=== PATIENT | female | born 1945 | race Caucasian/White ===

== ENCOUNTER 2017-05-24 08:00 | Inpatient (IN) | payer MEDICARE, BC ==
[~2017-05-24] VITALS: Ht 162.6 cm; Wt 43.1 kg
[2017-05-24 09:28] LABS: BASOPHILS 0.2 % (0-2); EOSINOPHILS 0 % (0-7); HEMOGLOBIN 14.7 g/dL (12-16); IMMATURE GRANULOCYTES 0.7 % (0-5); LYMPHOCYTES 9.9 % (15-50); MCH 30.2 pg (26.0-34.0); MCHC 30.6 g/dL (31.0-37.0); MCV 98.6 fL (80.0-100.0); MEAN PLATELET VOLUME 10.8 fL (7.4-10.4); MONOCYTES 11.9 % (2-11); NEUTROPHILS 77.3 % (40-80); PLATELET COUNT 209 10x3/uL (130-400); RBC 4.87 10x6/uL (4.00-5.40); RDW 14.1 % (11.5-14.5); WBC 9.1 10x3/uL (4.8-10.8)
[2017-05-24 09:31] LABS: APPEARANCE CLEAR (CLEAR); BILIRUBIN NEGATIVE (NEGATIVE); COLOR DK YELLOW (YELLOW); GLUCOSE NEGATIVE (NEGATIVE); KETONE SMALL mg/dL (NEGATIVE); LEUKOCYTE ESTERASE NEGATIVE (NEGATIVE); NITRITE NEGATIVE (NEGATIVE); PROTEIN NEGATIVE (NEGATIVE); UROBILINOGEN NORMAL (NORMAL)
[2017-05-24 09:52] LABS: ALBUMIN 3.6 g/dL (3.4-5.0); ALKALINE PHOSPHATASE 74 U/L (46-116); ALT (SGPT) 19 U/L (10-68); CALC OSMOLALITY 298 mosm/kg (275-300); CALCIUM 9.3 mg/dL (8.5-10.1); CHLORIDE - SERUM 105 mmol/L (98-107); CREATININE - SERUM 0.4 mg/dL (0.6-1.3); GLUCOSE 141 mg/dL (74-106); POTASSIUM - SERUM 4.2 mmol/L (3.5-5.1); PROTEIN - SERUM 7.1 g/dL (6.4-8.2); SODIUM 148 mmol/L (136-145); THYROID STIMULATING HORMONE 0.12 uIU/mL (0.36-3.74); UREA NITROGEN 21 mg/dL (7-18); eGFR NON AFRICAN AMERICAN > 90 mL/min (90-120)
[2017-05-24] MEDS ORDERED: ULTRAM50 MG PO (11:52)
[2017-05-24] MEDS ORDERED: REMERON15 MG PO (11:53)
[2017-05-24] MEDS ORDERED: CEFUROXIME250 MG PO (11:54)
[2017-05-24] MEDS ORDERED: LEVOTHYROXINE100 MCG PO (11:54)
[2017-05-24 12:27] VITALS: BMI 16.3
[2017-05-24 12:33] VITALS: BP 156/74
[2017-05-24 14:53] LABS: ALBUMIN 3.3 g/dL (3.4-5.0); CALC OSMOLALITY 276 mosm/kg (275-300); CALCIUM 8.5 mg/dL (8.5-10.1); CHLORIDE - SERUM 103 mmol/L (98-107); CREATININE - SERUM 0.3 mg/dL (0.6-1.3); GLUCOSE 111 mg/dL (74-106); MAGNESIUM - SERUM 2.1 mg/dL (1.8-2.4); PHOSPHOROUS 3.6 mg/dL (2.5-4.9); POTASSIUM - SERUM 3.7 mmol/L (3.5-5.1); PRE-ALBUMIN 16.2 mg/dL (18.0-35.7); SODIUM 137 mmol/L (136-145); UREA NITROGEN 18 mg/dL (7-18); eGFR NON AFRICAN AMERICAN > 90 mL/min (90-120)
[2017-05-24 17:38] VITALS: BP 156/74
[2017-05-24 20:00] VITALS: BP 132/61
--- NOTE | 2017-05-24 22:37 | NUR ---
REC'D LYING IN BED. IS RESTING. NO DISTRESS NOTED. SUZANNA IS IN ROOM WITH AND STATED THAT "SHE DOESNT KNOW IF SHE IS GOING TO HAVE THE PEG TUBE PLACEMENT IN THE AM, LETS HOLD OFF ON THE CONSENT UNTIL THEN TO SEE WHAT SHE IS WANTING TO DO". WILL PLACE CONSENTS BACK ON CHART. ALSO A SON NAMED SOFÍA BEE CALLED AND WANTED TO KNOW THE STATUS OF HIS MOTHER. AT THE TIME THERE WAS NOT A PASSWORD ON FILE, BUT THERE WAS NOT ANYTHING TO TELL BECAUSE SHE DOESNT KNOW WHAT SHE IS WANTING TO DO YET. I TOLD SUZANNA AND HE PLACED A PASSWORD ON ACCT OF "SON". WILL CONT TO MONITOR. INSTRUCTED TO CALL IF NEEDED ANYTHING, BED LOW, LOCKED, CALL LIGHT IN REACH.
--- NOTE | 2017-05-25 00:30 | NUR ---
PT RESTING QUIETLY, EYES CLOSED. RESP EVEN, UNLABORED. NO DISTRESS NOTED. CONTINUE SIX HORSE HITCH DRIVER'S PLAN OF CARE.
[2017-05-25 04:00] VITALS: BP 137/61
[2017-05-25 05:23] LABS: BASOPHILS 0.1 % (0-2); EOSINOPHILS 0.4 % (0-7); HEMATOCRIT 46.2 % (36.0-48.0); HEMOGLOBIN 13.5 g/dL (12-16); IMMATURE GRANULOCYTES 0.7 % (0-5); LYMPHOCYTES 12.9 % (15-50); MCH 29.9 pg (26.0-34.0); MCHC 29.2 g/dL (31.0-37.0); MONOCYTES 16.8 % (2-11); NEUTROPHILS 69.1 % (40-80); PLATELET COUNT 181 10x3/uL (130-400); RBC 4.52 10x6/uL (4.00-5.40); RDW 14.1 % (11.5-14.5); WBC 8.4 10x3/uL (4.8-10.8)
[2017-05-25 05:26] LABS: MCV 102.2 fL (80.0-100.0)
[2017-05-25 05:45] LABS: ALKALINE PHOSPHATASE 58 U/L (46-116); ALT (SGPT) 17 U/L (10-68); CALC OSMOLALITY 297 mosm/kg (275-300); CALCIUM 8.5 mg/dL (8.5-10.1); CHLORIDE - SERUM 110 mmol/L (98-107); CHOL - HDL RATIO 2.9 ratio (2.3-4.1); CHOLESTEROL, TOTAL 141 mg/dL (0-200); CREATININE - SERUM 0.3 mg/dL (0.6-1.3); GLUCOSE 115 mg/dL (74-106); HDL CHOLESTEROL 48 mg/dL (32-96); LDL CHOLESTEROL 79 mg/dL (0-100); LDL-HDL RATIO 1.6 ratio (1.5-3.5); MAGNESIUM - SERUM 2.1 mg/dL (1.8-2.4); PHOSPHOROUS 3.3 mg/dL (2.5-4.9); POTASSIUM - SERUM 3.7 mmol/L (3.5-5.1); SODIUM 149 mmol/L (136-145); TRIGLYCERIDE 71 mg/dL (30-200); UREA NITROGEN 16 mg/dL (7-18); eGFR NON AFRICAN AMERICAN > 90 mL/min (90-120)
[2017-05-25 05:50] LABS: CARBON DIOXIDE 42.3 mmol/L (21.0-32.0)
--- NOTE | 2017-05-25 07:10 | NUR ---
PATIENT IN BED WITH EYES CLOSED RESTING QUIETLY. CALL LIGHT WITHIN REACH.
--- NOTE | 2017-05-25 07:30 | NUR ---
PT ASSESSMENT COMPLETE PT NOTED TO HAVE ALS DEWEY CATHETER PATENT TO CONCENTRATED YELLOW URINE. ALL ALDS PER TOTAL CARE OF STAFF MOBILE PER STAFF ASSIST. AWAITING PT TO DECIDE IF SHE IN FACT WISHES TO PROCEED WITH PEG PLACEMENT
[2017-05-25 09:32] VITALS: BP 146/72
[2017-05-25 11:58] VITALS: BP 141/69
--- NOTE | 2017-05-25 13:47 | NUR ---
Patient Name: MICHELLE CRUZ Admission Status: ER Accout number: [id number] Admission Date: 05-24-2017 : 1945 Admission Diagnosis: Attending: GARY Current LOS: 1 Anticipated DC Date: 05-27-2017 Planned Disposition: Home with Home Health Primary Insurance: MEDICARE A & B Discharge Planning Comments: CM MET WITH PATIENT, SON (SUKH), AND FRIEND (SILVIA) REGARDING D/C NEEDS AND PLANS. PATIENTS SON STATED HE OR HER FRIEND WILL DRIVE HER HOME AT DISCHARGE. PATIENT IS TOTALLY DEPENDENT ON HER CARE. PATIENT HAS A WALKER, WHEELCHAIR, AND SHOWER CHAIR AT HOME BUT HAS NOT GOTTEN UP IN A WHILE PER SON. PATIENTS PCP IS DR. CORTES AND PHARMACY IS [facility]. PATIENT, FRIEND, ANS SON ARE DECIDING ON HOME HEALTH AND WILL LET CASE MANAGEMENT KNOW SOON THEY DECIDE. CM WILL CONTINUE TO FOLLOW PATIENT WITH D/C NEEDS AND PLANS. PCP DR. SEBAST[facility]- [phone] SUKH (SON) [phone] SILVIA (FRIEND) [phone] Dope Heater: Teetee Dudley Is the patient Alert and Oriented? Yes 0 * How many steps to enter\exit or inside your home? 0 0 * PCP DR. CORTES 0 * Pharmacy [facility] 0 * Preadmission Environment Home with Family 0 * ADLs Total Dependent 0 * Equipment Shower Chair Walker Wheelchair 0 * List name and contact numbers for known caregivers / representatives who currently or will assist patient after discharge: SUKH CRUZ (SON) [phone] SILVIA GALICIA [phone] 0 * Community resources currently utilized None 0 * Additional services required to return to the preadmission environment? Yes 0 * Can the patient safely return to the preadmission environment? Yes 0 * Has this patient been hospitalized within the prior 30 days at any hospital? No 0 Grand Total: 0
[2017-05-25 13:57] VITALS: Ht 162.6 cm; Wt 43.1 kg
--- NOTE | 2017-05-25 15:04 | CN ---
PATIENT NAME:MICHELLE CRUZ MEDICAL RECORD: [id number] : 43 LOCATION:D.MS [facility] ADMIT DATE: 05/24/17 ACCOUNT: [id number] CONSULTING PHYSICIAN: DIANNA BRODY MD REFERRING PHYSICIAN: PAM CORTES MD DATE OF CONSULTATION: 05/24/2017 CHIEF COMPLAINT: Losing weight. HISTORY OF PRESENT ILLNESS: The patient is having difficult time swallowing. She has lost a dramatic amount of weight. She has ALS. She sought treatment for this out in [place]. She has not been able to walk since February. She has a very hoarse voice. She appears to be profoundly weak. She has almost no oral intake. I have been asked by Dr. Carter to place a feeding tube. I think it is going to be mandatory to place a feeding tube if the patient is going to seek additional therapy for ALS. She seems very weak now. She may not survive to seek additional treatment, but as for now, she is not ready to go to hospice. Symptoms came on gradually. They have worsened over the last 7 days. Nothing aggravates. Nothing alleviates. We discussed how gastrostomy tubes are placed and the fact they should not be removed for 4 weeks after they have been replaced. We discussed the risks, possible complications and alternatives to gastrostomy tube placement. This includes the risk of intestinal injury, bleeding and infection. I have discussed this with a friend of hers as well as with her son. PAST MEDICAL AND SURGICAL HISTORY: ALS. She wears glasses, knee surgery, tubal ligation, thyroid problems. HOME MEDICATIONS: Tramadol. ALLERGIES: No known drug allergies. FAMILY HISTORY: A parent had cancer. SOCIAL HISTORY: Former tobacco use. REVIEW OF SYSTEMS: She does have generalized weakness, dysphagia. The rest of review of systems is listed in the typed portion of the chart. PHYSICAL EXAMINATION: GENERAL: The patient appears acutely ill. Also appears chronically ill. The entire physical examination was performed in the presence of a female nurse. HEAD: Bilateral temporal wasting. External ears appear normal. EYES: Extraocular movements are intact. NECK: Trachea is midline. CHEST: There are intercostal retractions, mildly labored. ABDOMEN: Scaphoid, nontender. There is a small midline scar through which a bilateral tubal ligation was performed. EXTREMITIES: No peripheral cyanosis. INTEGUMENT: No rash, no ulcerations. PSYCHIATRIC: Anxious affect. NEUROLOGIC: Answers questions appropriately. She has a very hoarse voice and talks almost in a whisper. She is very weak. She is unable to stand. BACK: Mild thoracic kyphosis is noted. CONSULT REPORT [id number] ANTHONYMICHELLE MARTI LYMPHATICS: No lymphangitic streaking of the exposed extremities. IMPRESSION: 1. Dysphagia. 2. Dramatic weight loss due to amyotrophic lateral sclerosis. PLAN: PEG tube placement. She is going to be at significant risk for a refeeding syndrome, so she may need to stay in the hospital for a few days while we check electrolytes. TRANSINT:[id number] Voice Confirmation ID: [id number] DOCUMENT ID: [id number] DIANNA BRODY MD at 1504 CC: [id number] DICTATION DATE: 05/24/17 1444 NUCLEAR REACTOR OPERATOR: 05/24/17 1656 ADM IN [facility] [address] [place] [address]
--- NOTE | 2017-05-25 15:55 | NUR ---
Wound care consult: Noted Stage 1 pressure injury on sacrum. It measures 0.5cm x 0.3cm. It is superficial. The surrounding tissue is red and blanchable. Pt is very thin and is a high risk for further breakdown. She was placed on an air overlay mattress yesterday. I placed a Mepilex Sacral dressing on her to give some added cushion and protection to her sacral/coccyx areas. Her feet are cool to the touch and mottled. Heels are red and deidre but I placed a pillow to elevate them for protection from pressure. She is unable to position/reposition herself and will require position changes and/or turning every 2 hours. If she is placed up in chair position changes will be necessary hourly. Discussed all the above with friend and sons. Also discussed the best ways to heal a pressure injury i.e., pressure relief and proper nutrition. PEG tube was placed today by Dr. Parks. I will continue monitoring.
--- NOTE | 2017-05-25 18:08 | NUR ---
PT HAD PEG PLACED TODAY PER DR BRODY TOLERATING WELL PT WITH PEG TO GRAVITY DRAIN X 24 HRS. COMPLAINED OF PAIN AT THIS TIME REPOSITIONED AND GIVEN DILAUDID 0.5 MG IVP PER ORDER WASTED WITH ANOTHER NURSE ON FLOOR REMAINS OF 1 MG VIAL. FAMILY AT BEDSIDE.
[2017-05-25 19:00] VITALS: BP 125/63
[2017-05-26] VITALS: BP 140/70
--- NOTE | 2017-05-26 00:11 | NUR ---
REC'D SITTING UP IN BED. ALERT AND ORIENTED X4. REPORTED PAIN 5/10. WILL ADMIN MEDS PRESCRIBED. CAREGIVER IS AT BEDSIDE. IS WORRIED ABT HER NUTRITION. INFORMED HIM THAT THE DIETITIAN HAS TO DECIDE 2 BECKETT WHAT TIME OF FEEDING SHE WILL BE PLACED ON. VERBALIZED UNDERSTANDING. HAS A ABDOMINAL BINDER TO BED PLACED ON, CAREGIVER/POA STATED" WHY DONT WE WAIT TO PUT THAT ON BECAUSE SHE IS IN SO MUCH PAIN RIGHT NOW". WILL CONT TO MONITOR. INSTRUCTED TO CALL IF NEEDED ANYTHING. VERBALIZED UNDERSTANDING. BED LOW, LOCKED, CALL LIGHT IN REACH.
[2017-05-26 04:00] VITALS: BP 136/67
[2017-05-26 05:55] LABS: BASOPHILS 0.1 % (0-2); EOSINOPHILS 0 % (0-7); HEMATOCRIT 41.4 % (36.0-48.0); HEMOGLOBIN 12.3 g/dL (12-16); IMMATURE GRANULOCYTES 0.3 % (0-5); LYMPHOCYTES 9.7 % (15-50); MCHC 29.7 g/dL (31.0-37.0); MEAN PLATELET VOLUME 10.5 fL (7.4-10.4); MONOCYTES 13.5 % (2-11); NEUTROPHILS 76.4 % (40-80); PLATELET COUNT 154 10x3/uL (130-400)
[2017-05-26 06:16] LABS: CALC OSMOLALITY 299 mosm/kg (275-300); CALCIUM 8.6 mg/dL (8.5-10.1); CARBON DIOXIDE 38.9 mmol/L (21.0-32.0); CHLORIDE - SERUM 107 mmol/L (98-107); CREATININE - SERUM 0.3 mg/dL (0.6-1.3); GLUCOSE 136 mg/dL (74-106); MAGNESIUM - SERUM 2.1 mg/dL (1.8-2.4); POTASSIUM - SERUM 3.2 mmol/L (3.5-5.1); SODIUM 150 mmol/L (136-145); UREA NITROGEN 13 mg/dL (7-18); eGFR NON AFRICAN AMERICAN > 90 mL/min (90-120)
[2017-05-26 06:17] LABS: PHOSPHOROUS 2.2 mg/dL (2.5-4.9)
--- NOTE | 2017-05-26 06:36 | NUR ---
EYES CLOSED RESPIRATION WITH EASE AND UNLABORED.
--- NOTE | 2017-05-26 07:37 | HP ---
PATIENT: MICHELLE CRUZ MEDICAL RECORD: [id number] ACCOUNT: [id number] LOCATION:D.MS [facility]2229 : 43 ADMISSION DATE: 05/24/17 HISTORY AND PHYSICAL EXAMINATION Admission History and Physical HISTORY OF PRESENT ILLNESS: A 71-year-old female presents to the Emergency Room extremely malnourished, unable to swallow, has a history of progressive ALS, has had significant weight loss, difficulty swallowing, extremely malnourished, has been just returned to [place] this past week, has been followed by an ALS specialist neurologist in [place], [place]. Partners present, they would like evaluation for feeding tube. She also has a sacral decubitus stage I. PAST MEDICAL HISTORY: Significant for the ALS with significant decline, hypothyroidism. CURRENT MEDICATIONS: Levothyroxine, recently started on cefuroxime for presumptive UTI, Remeron at bedtime, tramadol 50 mg p.r.n. ALLERGIES: No known drug allergies. FAMILY HISTORY: Noncontributory. REVIEW OF SYSTEMS: GENERAL: Significant for loss of appetite, unable to eat, difficulty swallowing, significant progressive decline. HEENT: Denies cephalgia, visual changes, tinnitus, epistaxis or dysphagia. CARDIOVASCULAR: Denies chest pain or palpitations. PULMONARY: Denies hemoptysis, denies night sweats. GASTROINTESTINAL: Again, significant weight loss, unable to swallow, very poor p.o. intake. GENITOURINARY: Denies dysuria. Does admit decreased urine output secondary to very minimal p.o. intake. MUSCULOSKELETAL: Cachectic appearance, significant weight loss, muscle atrophy, also stage I decubitus sacral. PHYSICAL EXAMINATION: VITAL SIGNS: Temperature 98.4, blood pressure 152/74, heart rate 95, respirations 16, and O2 sats 96% on 1 liter via nasal cannula. NEUROLOGICAL: Alert, oriented, mild distress, progressive, cachectic appearance. HEENT: Normocephalic, atraumatic. Eyes: Pupils are equally round and reactive to light and accommodation. Extraocular muscles intact. Conjunctiva was not injected. Ears: Canals patent, TMs are intact. Nose: Nares patent without drainage. Throat: No erythema, no exudates. NECK: Supple. No lymphadenopathy, no JVD. HEART: Regular rate and rhythm. LUNGS: Clear to auscultation bilaterally. Breathing is nonlabored. ABDOMEN: Soft, cachectic. EXTREMITIES: Present times 4. Muscle atrophy, has a stage 1 sacral decubitus. ASSESSMENT AND PLAN: 1. Progressive amyotrophic lateral sclerosis with difficulty with speech, HISTORY AND PHYSICAL [id number] MICHELLE CRUZ difficulty with swallow, extreme weight loss, malnourished. Discussed case with general surgery, agrees with feeding tube placement. Has seen the patient presently, discussed a swallow eval. We will not make a difference in care plan at this time. We will proceed with PEG tube placement. We will not risk further injury with barium at this time. 2. Hypothyroid. Continue Synthroid. 3. Stage I sacral decubitus. Wound care nurse consult, air overlay mattress, supportive care, poor prognosis. TRANSINT:[id number] Voice Confirmation ID: [id number] DOCUMENT ID: [id number] DIANNA UMANA DO at 0737 CC: [id number] DICTATION DATE: 05/24/17 1329 FINAL INSPECTOR PAPER: 05/24/17 1522 ADM IN [place] [facility] [id number] [place] [address]
[2017-05-26 09:03] VITALS: BP 141/69
--- NOTE | 2017-05-26 09:44 | NUR ---
NUTRITION MONITORING & EVAL TUBE FEED ORDERS PER MD CONSULT. NURSING MESSAGE ENTERED, AND SPOKE WITH NURSING WELL. RD FOLLOWING
--- NOTE | 2017-05-26 12:17 | NUR ---
STARTED PT'S FEEDING VIA PEG TUBE. CHECKED RESIDUAL, 3CC. WILL CONTINUE OT MONITOR
--- NOTE | 2017-05-26 13:00 | OP ---
PATIENT NAME: MICHELLE CRUZ MEDICAL RECORD: [id number] :43 LOCATION:D.MS [facility]29 ADMISSION DATE:05/24/17 SURGEON: ROBERT BRODY MD DATE OF OPERATION: 05/25/2017 PREOPERATIVE DIAGNOSES: 1. Dysphagia. 2. Severe protein-calorie malnutrition. 3. Feeding problems. 4. Amyotrophic lateral sclerosis. POSTOPERATIVE DIAGNOSES: 1. Dysphagia. 2. Severe protein-calorie malnutrition. 3. Feeding problems. 4. Amyotrophic lateral sclerosis. PROCEDURE: 1. Esophagogastroduodenoscopy with antral biopsies. 2. Placement of 20-Hungarian percutaneous endoscopic gastrostomy tube. SURGEON: Robert Brody MD YOGA TEACHER: None. BLOOD LOSS: Minimal. ANESTHESIA: Local with IV sedation. COMPLICATIONS: None. The risks, possible complications and alternatives to procedure were explained to the patient's family. They elected to proceed. OPERATIVE COURSE: The patient was conveyed to endoscopy suite electively on 05/25/2017. IV sedation was induced by the anesthesia staff. A bite block was inserted. A gastroscope was inserted into the mouth. It was advanced easily into the hypopharynx. The esophagus was easily intubated as were the stomach and duodenum. The patient began having some desaturations due to hypopnea. I removed the endoscope. The patient required Ambu bagging for a short period of time. Once her sats came up, I then re-endoscoped the patient's esophagus and stomach. Cold and endoscopic antral biopsies were obtained. I was able to transilluminate through the abdominal wall. I was able to indent the abdominal wall and visualize this endoscopically. The anterior abdominal wall was cleansed with Betadine. I chose an area for insertion of the gastrostomy tube. This area was infiltrated with a local anesthetic. A small skin hemalatha was accomplished. I then advanced an Angiocath through the skin hemalatah and accessed the stomach anteriorly on the first try. Through the Angiocath, I advanced a wire. This was grasped with an endoscopic snare and was withdrawn through the mouth. The wire was attached to a pull type gastrostomy tube. I then pulled the gastrostomy tube in place. I re-endoscoped the patient's esophagus and stomach. There had been no false passage or OPERATIVE REPORT [id number] MICHELLE CRUZ perforation. The endoscope was then withdrawn under direct vision. Hub and flange devices were attached. The patient was then conveyed back to her room. TRANSINT:[id number] Voice Confirmation ID: [id number] DOCUMENT ID: [id number] ROBERT BRODY MD at 1300 CC: [id number] DICTATION DATE: 05/25/17 1452 DISINTEGRATOR FEEDER: 05/25/17 1522 ADM IN [place] [id number] [place] [address]
--- NOTE | 2017-05-26 15:21 | NUR ---
INCREASED FEEDING FROM 10CC/HR TO 20CC HR PER DR. BRODY VERBAL AND BEDSIDE. WILL CONTINUE TO MONITOR
[2017-05-26 17:44] VITALS: BP 126/72
--- NOTE | 2017-05-26 20:02 | NUR ---
Received patient in bed in sitting position with at bedside. Oxygen is on @2L/min, maki catheter in place draining dark brown-luis urine, Peg Tube infusing Jevity 1.2 @20ml/hr. Per report Peg tube feeding is due to be increased by 10mls @0300 if patient continues to tolerate same. Residual checked at this time = 4mls. PIV in left forearm is infusing D5W with 20mEq of KCL @100ml/hr. No signs of infection or infiltration. Potassium emmanuel is still infusing (#4) @ 50ml/hr. 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 Emotional support given. Denies any pain or discomfort at this time.
--- NOTE | 2017-05-26 22:17 | NUR ---
Given Dilaudid 0.5mg IV for back, abdomen pain rated as 8/10. Will monitor for effectiveness. at bedside assisting patient with turning and repositioning to get pressure off her coccyx area. Dressing in place.
--- NOTE | 2017-05-26 23:05 | NUR ---
Patient is sleeping, eyes closed, respiations unlabored with oxygen on via nasal cannula. remains at bedside and reports that Dilaudid has been effective in relieving pain.
[2017-05-26 23:59] VITALS: BP 126/74
--- NOTE | 2017-05-27 00:05 | NUR ---
PEG Tube remains in place, residual = 0mls. Tube feeding rate has been @20mls since approx 1500. Rate increased to 30mls/hr with 75ml water flushes every four hours. (Goal is to reach 50mls/hr by increasing by 10mls/hr every 8 hours if patient can tolerate). reamins at bedside. 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
--- NOTE | 2017-05-27 04:12 | NUR ---
Tolerating increased rate in tube feeding, residual = 10mls. Complains of severe back and coccyx pain, given Dilaudid 0.5mg per IV at this time.
[2017-05-27 05:11] LABS: PHOSPHOROUS 1.8 mg/dL (2.5-4.9)
--- NOTE | 2017-05-27 05:12 | NUR ---
Sleeping, eyes closed, respirations easy and regular. PRN Dilaudid deemed effective.
[2017-05-27 09:33] VITALS: BP 157/90
--- NOTE | 2017-05-27 10:35 | NUR ---
CM REASSESSMENT NOTE: PATIENT AND FAMILY CHOSE [facility] AND [facility] FORM SIGNED. FILED IN CHART.
[2017-05-27 13:40] VITALS: BP 137/70
--- NOTE | 2017-05-27 14:29 | NUR ---
PT AOX4 RESP EVEN AND NONLABORED PT IS NONVERBAL. FAMILY AT BEDSIDE. IV TO RIGHT FOREARM PATENT AND INTACT AT THIS TIME. SRX2 BED AT LOWEST SETTING CALL LIGHT WITHIN REACH WILL CONTINUE TO MONITOR
--- NOTE | 2017-05-27 14:41 | NUR ---
NUTRITION MONITORING & EVAL CHART REVIEWED. SPOKE WITH NURSING. TO INCREASE TUBE FEEDS TO 40 CC/HR. ALSO TO REPLACE PHOS. RD FOLLOWING
[2017-05-27 17:15] VITALS: BP 123/64
[2017-05-27 19:00] VITALS: BP 137/65
--- NOTE | 2017-05-27 20:00 | NUR ---
ASSESSMENT PER FLOW SHEET.PT IS LETHARGIC AND NON VERBAL AT THIS TIME.SHE IS WITHOUT DISTRESS.DEWEY TO GRAVITY WITH YELLOW URINE IN BAG.DOOR OPEN TO MONITOR PT.
[2017-05-28] VITALS: BP 134/71
[2017-05-28 04:57] LABS: BASOPHILS 0.1 % (0-2); EOSINOPHILS 0.6 % (0-7); HEMATOCRIT 42.6 % (36.0-48.0); HEMOGLOBIN 12.7 g/dL (12-16); IMMATURE GRANULOCYTES 0.1 % (0-5); MCH 29.3 pg (26.0-34.0); MCHC 29.8 g/dL (31.0-37.0); MCV 98.2 fL (80.0-100.0); MEAN PLATELET VOLUME 11.1 fL (7.4-10.4); MONOCYTES 9.5 % (2-11); NEUTROPHILS 81.7 % (40-80); PLATELET COUNT 174 10x3/uL (130-400); RBC 4.34 10x6/uL (4.00-5.40); RDW 14.1 % (11.5-14.5); WBC 9.1 10x3/uL (4.8-10.8)
[2017-05-28 05:12] LABS: CALCIUM 8.6 mg/dL (8.5-10.1); CHLORIDE - SERUM 98 mmol/L (98-107); GLUCOSE 152 mg/dL (74-106); POTASSIUM - SERUM 4.2 mmol/L (3.5-5.1); SODIUM 138 mmol/L (136-145)
[2017-05-28 05:29] LABS: CALC OSMOLALITY 276 mosm/kg (275-300); CREATININE - SERUM 0.2 mg/dL (0.6-1.3); PHOSPHOROUS 2.8 mg/dL (2.5-4.9); UREA NITROGEN 6 mg/dL (7-18); eGFR NON AFRICAN AMERICAN > 90 mL/min (90-120)
--- NOTE | 2017-05-28 07:29 | NUR ---
REMAINS WITHOUT NEEDS,WITHOUT CHANGE.CONT PLAN OF CARE
--- NOTE | 2017-05-28 08:00 | NUR ---
LINENS CHANGED, DENIES NEEDS, BED LOWEST POSITION, CALL LIGHT IN REACH, WILL CONTINUE TO MONITOR
[2017-05-28 08:28] LABS: APPEARANCE HAZY (CLEAR); BACTERIA NONE SEEN /hpf (NONE SEEN); BILIRUBIN NEGATIVE (NEGATIVE); COLOR YELLOW (YELLOW); EPITHELIAL CELLS RARE /hpf (0-5); GLUCOSE NEGATIVE (NEGATIVE); KETONE NEGATIVE (NEGATIVE); LEUKOCYTE ESTERASE NEGATIVE (NEGATIVE); NITRITE NEGATIVE (NEGATIVE); PROTEIN NEGATIVE (NEGATIVE); SPECIFIC GRAVITY 1.005 (1.005-1.020); UROBILINOGEN NORMAL (NORMAL)
[2017-05-28 09:49] VITALS: BP 109/58
--- NOTE | 2017-05-28 11:40 | NUR ---
CALLED INTO PTS ROOM AT THIS TIME BY NURSE, PT WAS NOT RESPONDING TO VERBAL COMMANDS, NURSE STATES THIS WAS A CHANGE IN LOC. RAPID RESPONSE CALLED AT THIS TIME, PHONE CALL PLACED TO DR. CORTES AT THIS TIME. TOMMY DIANA AND ICU NURSE CONTINUING PLAN OF CARE AT THIS TIME.
--- NOTE | 2017-05-28 11:45 | NUR ---
HAND I BLOCKER STATED PT IS ACTING DIFFERENT, UPON EXAM PT WAS NO LONGER FOLLOWING COMMANDS AND HAD NO STRENGTH IN HER HANDS, RAPID RESPONSE WAS CALLED, DR CORTES WAS NOTIFIED AND SO WAS HER SON, PT TAKEN FOR CT OF HER HEAD, AND THEN TO THE ER FOR [facility]-SAVES, STROKE WAS THEN RULED OUT AND SENT BACK TO HER ROOM, PT A&O NOW
[2017-05-28 14:21] VITALS: BP 119/50
[2017-05-28 17:01] VITALS: BP 126/63
--- NOTE | 2017-05-28 19:35 | NUR ---
ASSESSMENT PER FLOW SHEET.PT WITHOUT DISTRESS.SHE IS VERY LETHARGIC THIS AFTERNOON.NON VEBAL AT THIS TIME.MONITOR FOR NEEDS
[2017-05-28 20:00] VITALS: BP 110/65
--- NOTE | 2017-05-28 21:30 | NUR ---
RESTORIL DECLINED PER . PT STILL VERY SEDATED AND HAS NOT WOKE UP.MONITOR FOR NEEDS
--- NOTE | 2017-05-28 22:00 | NUR ---
AT SIDE,REQUESTED PT NOT BE DISTURBED SO SHE CAN SLEEP
[2017-05-29] VITALS: BP 119/62
--- NOTE | 2017-05-29 00:55 | NUR ---
STILL SEDATED. AT BEDSIDE.MONITOR FOR NEEDS
--- NOTE | 2017-05-29 02:35 | NUR ---
STARTING TO LIGHTLY MOAN,BUT NOT AWAKE. WANTS HER TO WAKE BEFORE SHE HAS ANYMORE MEDS.INSTRUCTED TO CALL FOR NEEDS.
[2017-05-29 04:00] VITALS: BP 150/74
[2017-05-29 04:26] LABS: BASOPHILS 0.1 % (0-2); EOSINOPHILS 0.9 % (0-7); HEMATOCRIT 41.9 % (36.0-48.0); HEMOGLOBIN 12.8 g/dL (12-16); IMMATURE GRANULOCYTES 0.3 % (0-5); LYMPHOCYTES 7.3 % (15-50); MCH 29.7 pg (26.0-34.0); MCHC 30.5 g/dL (31.0-37.0); MCV 97.2 fL (80.0-100.0); MEAN PLATELET VOLUME 10.9 fL (7.4-10.4); MONOCYTES 9.4 % (2-11); PLATELET COUNT 199 10x3/uL (130-400); RBC 4.31 10x6/uL (4.00-5.40); WBC 10.3 10x3/uL (4.8-10.8)
[2017-05-29 04:40] LABS: CALC OSMOLALITY 276 mosm/kg (275-300); CHLORIDE - SERUM 96 mmol/L (98-107); CREATININE - SERUM 0.2 mg/dL (0.6-1.3); GLUCOSE 138 mg/dL (74-106); POTASSIUM - SERUM 4.4 mmol/L (3.5-5.1); SODIUM 138 mmol/L (136-145); UREA NITROGEN 10 mg/dL (7-18); eGFR NON AFRICAN AMERICAN > 90 mL/min (90-120)
[2017-05-29 04:41] LABS: CARBON DIOXIDE 47.5 mmol/L (21.0-32.0)
--- NOTE | 2017-05-29 05:16 | NUR ---
REMAINS AT BEDSIDE.PT AWAKE INT. SOME MOANING NOTED AT TIMES.PAIN MEDS DECLINED PER FAMILY
--- NOTE | 2017-05-29 08:30 | NUR ---
PT NONVERBAL RESPONDS TO TOUCH AND VOICE. FAMILY AT BEDSIDE IV TO RIGHT FOREARM PATENT AND INTACT AT THIS TIME. HOB 45 DEGREES SRX2 BED AT LOWEST SETTING CALL LIGHT WITHIN REACH WILL CONTINUE TO MONITOR
[2017-05-29 08:32] VITALS: BP 162/83
[2017-05-29 14:13] VITALS: BP 123/72
--- NOTE | 2017-05-29 14:14 | NUR ---
Nutrition Follow Up: Chart reviewed and spoke with nursing. Pt is tolerating current TF regimen. Wt stable. No BM. Meds and labs reviewed. Order in to continue TF of Jevity 1.2 @ 45 ml/hr; water flushes 75 ml every [address] following.
--- NOTE | 2017-05-29 16:38 | NUR ---
SON REQUESTING HIS MOTHER BE PUT ON HOSPICE. EAMON DUQUE SPOKE TO MD AND ORDER RECEIVED. FOR HOSPICE. [facility] CALLED AND INFORMATION FAXED CM WILL CONTINUE TO FOLLOW AND ASSIST
[2017-05-29 16:46] VITALS: BP 173/82
--- NOTE | 2017-05-29 19:00 | NUR ---
PT FAMILY REFUSED ABG AND BIPAP FOR PT AT THIS TIME
[2017-05-29] MEDS ORDERED: HYDROCODON-ACE1 EAC7 PEG (20:42)
[2017-05-29] MEDS ORDERED: ATIVAN2 MG/ML IV (20:42)
== END 2017-05-29 21:32 | disposition hospice, inpatient (51) | DRG 56 ==
LOC: D.ER 08:00 → EDBD 08:00 → D.MS 11:12
PROVIDERS: Emergency Medicine; Family Medicine; Surgery; ADMIT Family Medicine
PROC: 0DB68ZX Excision of Stomach, Via Natural or Artificial Opening Endoscopic, Diagnostic (ICD-10-PCS; 2017-05-25)
PROC: 0DH63UZ Insertion of Feeding Device into Stomach, Percutaneous Approach (ICD-10-PCS; principal; 2017-05-25 13:30)
DX: G12.21 Amyotrophic lateral sclerosis (principal); E43 Unspecified severe protein-calorie malnutrition; Z68.1 Body mass index [BMI] 19.9 or less, adult; E03.9 Hypothyroidism, unspecified; R13.10 Dysphagia, unspecified; R47.89 Other speech disturbances; L89.151 Pressure ulcer of sacral region, stage 1; L89.152 Pressure ulcer of sacral region, stage 2; F41.9 Anxiety disorder, unspecified

== ENCOUNTER 2017-05-28 12:17 | Emergency (ER) | payer MEDICARE, BC ==
[2017-05-25 13:57] VITALS: BMI 16.3
[~2017-05-28 12:17] MED LIST: CEFUROXIME250 MG PO; LEVOTHYROXINE100 MCG PO; REMERON15 MG PO; ULTRAM50 MG PO
[2017-05-29] MEDS ORDERED: HYDROCODON-ACE1 EAC7 PEG (20:42)
[2017-05-29] MEDS ORDERED: ATIVAN2 MG/ML IV (20:42)
== END 2017-05-28 12:50 | disposition other institution (70) ==
LOC: D.ER 12:17
DX: G12.21 Amyotrophic lateral sclerosis (principal); R53.1 Weakness; E03.9 Hypothyroidism, unspecified

== ENCOUNTER 2017-05-29 21:31 | Inpatient (IN) | payer OTHER ==
[~2017-05-29] VITALS: Ht 162.6 cm; Wt 42.8 kg
--- NOTE | ~2017-05-29 | CN ---
PATIENT NAME:MICHELLE PORTILLO MEDICAL RECORD: [id number] : 41 LOCATION:D.MS [facility] ADMIT DATE: 05/29/17 ACCOUNT: [id number] CONSULTING PHYSICIAN: NEVIN CANO MD REFERRING PHYSICIAN: CAIN CAPONE MD DATE OF CONSULTATION: 05/29/2017 CONSULT REQUESTING PHYSICIAN: Dr. Michele Amezquita. REASON FOR CONSULTATION: BiPAP management and acute hypercarbic respiratory failure. HISTORY OF PRESENT ILLNESS: Ms. Portillo is a 71-year-old female. Now, the patient is noncommunicative and the history was taken mainly by reviewing the patient's note and talking to the nursing staff. Ms. Portillo was admitted with malnutrition and dehydration issues. She was pre-diagnosed with ALS. She was evaluated in [place] by the ALS specialist. The patient underwent a PEG tube placement by Dr. Parks. Yesterday, the patient began to have a sudden mental status change and the patient was taken to the ER for evaluation of CVA and she has a questionable bleed, may be artifact. REVIEW OF SYSTEMS: The detail not obtainable. PAST MEDICAL HISTORY: 1. ALS. 2. Hypothyroidism. PAST SURGICAL HISTORY: She is status post PEG tube placement. ALLERGIES: No known drug allergies. 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 FAMILY HISTORY: Noncontributory. PHYSICAL EXAMINATION: GENERAL: Now, the patient is lying comfortably in bed. She is on BiPAP and the patient just mourns by calling. VITAL SIGNS: The blood pressure is 123/72, pulse is 96, respiration is 16, temperature is 98, SPO2 is 97% on BiPAP. HEENT: Conjunctivae pink, sclerae nonicteric. NECK: Supple. There is no JVD. CHEST: Bibasilar crackles. No wheezing. HEART: Rhythm regular, normal sound, no murmur. ABDOMEN: Soft. Bowel sounds present. No hepatosplenomegaly. The PEG tube is in place. RECTAL: Deferred. EXTREMITIES: No cyanosis, no clubbing, no pedal edema. SKIN: Warm, normal turgor. CENTRAL NERVOUS SYSTEM: The patient has no obvious cranial nerve abnormalities, but the patient is noncommunicative, almost unresponsive. CHEST RADIOGRAPH: There is infiltrate in the right lower lobe. There is infiltrate in the left lower lobe. CONSULT REPORT [id number] MICHELLE PORTILLO OTHER LABORATORY DATA: CBC: WBC 10.3, hemoglobin 12.8, hematocrit 41.9, the platelet count is 199. Chemistry: Sodium is 138, potassium 4.4. Chloride 96, bicarbonate is 47.5. ABG: The pH is 7.38, pCO2 is 75.7, pO2 is 76, bicarbonate is 45.2. IMPRESSION: 1. Acute respiratory failure. 2. Acute mental status changes, possible metabolic encephalopathy, possible cerebrovascular accident. 3. Bilateral pneumonia, right more than the left, most likely secondary to chronic aspiration due to amyotrophic lateral sclerosis. 4. Status post PEG tube placement. 5. Metabolic alkalosis with a compensated respiratory acidosis. RECOMMENDATION: 1. We will continue the BiPAP. Start her on Diamox. 2. Check the ammonia level. 3. Discontinue Zithromax, discontinue Rocephin, start her on Levaquin and Zosyn to cover for anaerobes for aspiration pneumonia as well as gram-negative rods. 4. We will follow up labs and chest radiograph. Dr. Amezquita, thank you for involving me in the care of Ms. Portillo. TRANSINT:[id number] Voice Confirmation ID: [id number] DOCUMENT ID: [id number] NEVIN CANO MD CC: MICHELE AMEZQUITA DO [id number] DICTATION DATE: 05/29/17 1500 DEICER REPAIRER PNEUMATIC: 05/29/17 215 ADM IN [facility] [address] [place] [address]
--- NOTE | 2017-05-29 19:05 | NUR ---
HOSPICE NURSE PRESENT IN ROOM TALKING TO PATIENT'S SON TO PROCESS FOR [facility]. PATIENT NON-VERBAL WITH EYES SLIGHTLY OPEN. 02 AT 2L/NC. RR 16 EVEN AND DEEP. IV IN R FA INTACT/PATENT. DEWEY INTACT DRAINING LT YELLOW URINE. PEG TUBE FEED NOTED WITH JEVITY 1.2 ANUM AT 45ML/HR. NO S/S OF DISCOMFORT.
[2017-05-29 20:00] VITALS: BP 134/73
[~2017-05-29 21:31] MED LIST changes: +ATIVAN2 MG/ML IV; +HYDROCODON-ACE1 EAC7 PEG
--- NOTE | 2017-05-29 21:40 | NUR ---
DR AMEZQUITA PLACED DC ORDER. READMITTED TO HOSPICE CARE.
--- NOTE | 2017-05-29 22:45 | NUR ---
ADMIN MORPHINE 1MG IV AND ATIVAN 0.5MG IV FOR S/S OF PAIN AND DISTRESS. SON PRESENT IN ROOM.
--- NOTE | 2017-05-30 00:05 | NUR ---
RESTING QUIETLY WITH EYES CLOSED. RR EVEN U/L. 02 SAT'S AT 94%. WILL CONT TO MONITOR CLOSELY.
[2017-05-30 00:08] VITALS: BP 94/62
[2017-05-30 00:44] VITALS: BP 173/82; Ht 162.6 cm; Wt 42.8 kg
--- NOTE | 2017-05-30 01:49 | NUR ---
HOSPICE NURSE PATRICK SAMANIEGO RN LEFT ORDERS TO CONTINUE ALL PATIENT'S MEDICATIONS, IV ANTIBIOTIC'S AND TUBE FEEDINGS. STATED PATIENT'S SON REQUESTED THIS.
--- NOTE | 2017-05-30 02:27 | NUR ---
PATIENT LAYING IN BED RESTING COMFORTABY FROM APPEARANCE. JEVITY 1.2 INFUSING VIA [place] PUMP TO RIGHT SIDED PEG TUBE. NO NEEDS NOTED AT THIS TIME. WILL CONTINUE TO MONITOR.
--- NOTE | 2017-05-30 06:31 | NUR ---
TUBE FEED RATE DECREASED FROM 45mL/HR TO 20mL/HR
--- NOTE | 2017-05-30 07:30 | NUR ---
ASSESSMENT COMPLETE. IV TO R FA PATENT. NS INFUSING AT 10 CC/HR VIA PUMP. JEVITY INFUSING AT 20 CC/HR THROUGH PEG TUBE. ABDOMINAL BINDER IN USE. DEWEY PATENT DRAINING YELLOW URINE. 02 2L NC IN USE. 1ST STEP AIROVERLAY MATTRESS IN USE. NONRESPONSIVE TO VERBAL STIMULI. HEELS BRIDGED.
[2017-05-30 09:50] VITALS: BP 108/43
--- NOTE | 2017-05-30 10:37 | NUR ---
CONTINUES RESTING QUIETLY. RESP SHALLOW AND IRREGULAR. SON AT BEDSIDE. SON DENIES ANY NEEDS AT THIS TIME.
--- NOTE | 2017-05-30 14:21 | NUR ---
MOTTLED COLOR NOTED TO FEET-WORSE TO LEFT FOOT. FAMILY AT BEDSIDE. HOSPICE NURSE BY TO ASSESS PATIENT.
--- NOTE | 2017-05-30 15:18 | NUR ---
TANISHA TAKEN HOME BY SONClemente
--- NOTE | 2017-05-30 17:00 | NUR ---
CAREGIVER BY TO VISIT PATIENT.
--- NOTE | 2017-05-30 17:37 | NUR ---
NO CHANGES NOTED AT PRESENT. RESPIRATIONS 20 PER MINUTE AND SHALLOW.
--- NOTE | 2017-05-30 19:00 | NUR ---
REPORT RECEIVED AND CARE OF PT ASSUMED. PT LYING IN SEMI HURLEY'S POSITION ON 1ST STEP AIR MATTRESS OVERLAY. IV IN RIGHT FA PATENT WITH NS INFUSING AT KVO. PEG TUBE PATENT WITH JEVITY INFUSING AT 20 ML / HR. DEWEY CATHETER DRAINING TO GRAVITY WITH YELLOW URINE IN COLLECTION BAG. PT NON-RESPONSIVE AND NON VERBAL. WILL MONITOR CLOSLEY FOR NEEDS.
[2017-05-30 20:00] VITALS: BP 99/46
--- NOTE | 2017-05-30 20:25 | NUR ---
HS MEDICATIONS GIVEN. FRIEND AT BEDSIDE.
--- NOTE | 2017-05-30 22:23 | NUR ---
RESPIRATIONS SHALLOW. SPO2 89% ON 2L O2.
--- NOTE | 2017-05-30 23:05 | NUR ---
PT CONTINUES TO HAVE VERY SHALLOW, SLOW RESPIRATIONS. SPO2 98% / PULSE 71. FRIEND IS AT BEDSIDE. WILL CONTINUE TO MONITOR FOR NEEDS.
--- NOTE | 2017-05-31 06:09 | NUR ---
PT CONTINUES WITH VERY SHALLOW RESPIRATIONS. FAMILY MEMBER IS AT BEDSIDE.
--- NOTE | 2017-05-31 07:32 | NUR ---
SLEEPING, CAREGIVER AT BEDSIDE, BREATHING SHALLOW, 1ST STEP OVERLAY MATTRESS, BED LOWEST POSITION, CALL LIGHT IN REACH, WILL CONTINUE TO MONITOR
[2017-05-31 08:00] VITALS: BP 75/34
[2017-05-31 20:00] VITALS: BP 51/24
--- NOTE | 2017-06-01 00:01 | NUR ---
WALKED INTO PATIENT'S ROOM, 3 BREATHS NOTED ON HAND AND THEN NONE. NO PALPABLE PULSE AND NOT APICAL PULSE NOTED. INFORMED BELINDA, FINANCIAL PLANNING ADVISER, WHO CAME IN AND SAID SHE COULDN'T HEAR A PULSE EITHER. DR CHURCH WAS CALLED, ANSWERING SERVIED STATED THEY WOULD PAGE HIM.
--- NOTE | 2017-06-01 00:02 | NUR ---
CALLED CAGE SUPERVISOR TO ADVISE OF PT PASSING.
--- NOTE | 2017-06-01 00:10 | NUR ---
CALLED PT'S SON SUKH TO INFORM OF PT'S PASSING.
--- NOTE | 2017-06-01 00:11 | NUR ---
CALLED [facility]...WAITING FOR GRIP ASSEMBLER NURSE TO CALL BACK.
--- NOTE | 2017-06-01 00:13 | NUR ---
NETO NGUYEN FOR [facility] CALLED...COMING FROM [place], AND ON THE WAY NOW.
--- NOTE | 2017-06-01 00:14 | NUR ---
DEBRA MCGRAW FOR DR CAPONE CALLED TO SAY THAT ER DOCTOR WILL PRONOUNCE.
--- NOTE | 2017-06-01 00:15 | NUR ---
DR LAWSON HERE TO PRONOUNCE.
--- NOTE | 2017-06-01 00:24 | NUR ---
VINCENT WAS CALLED, MESSAGE WAS LEFT EXPLAING THAT PATIENT AT MIDNIGHT, NURSE NAME, AND CALL BACK NUMBER.
--- NOTE | 2017-06-01 00:31 | NUR ---
VINCENT RETURNED PHONE CALL. PATIENT DID NOT MEET CRITERIA FOR AGE. HOBBING MACHINE OPERATOR: CLARA GUSTAFSON REF# [id number]
--- NOTE | 2017-06-01 01:34 | NUR ---
VERBAL REPORT GIVEN TO HOSPISE NURSE.
--- NOTE | 2017-06-01 02:57 | NUR ---
THE HOME REPRESENATIVE PICKED UP THE BODY AND TRANSPORTED. PAPERWORK SIGNED AND COMPLETED. WARE FINISHER WAS NOTIFIED
== END 2017-06-01 03:00 | DRG 951 ==
LOC: D.MS 21:31
PROVIDERS: ADMIT Legal Medicine
DX: Z51.5 Encounter for palliative care (principal)